=== PATIENT | male | born 1980 | race Caucasian/White ===

== ENCOUNTER 2017-10-10 14:19 | Emergency (ER) | payer OTHER ==
[~2017-10-10] VITALS: Ht 175.3 cm; Wt 108.9 kg
[~2017-10-10 14:19] MED LIST: DOXYCYCLINE 10100 MG PO; IBUPROFEN 800800 M1 PO; IBUPROFEN 800800 MG PO; NAPROSYN500 MG PO; NOHOMEMEDICATIONS; NORCO 5-325 TA1 EACH PO; NORCO 7.5-3251 EACH PO
[2017-10-10] MEDS ORDERED: ZESTRIL10 MG PO (14:38)
[2017-10-10] MEDS ORDERED: VENTOLIN HFA 1818 GM INH (14:38)
[2017-10-10] MEDS ORDERED: NORCO 5-325 TA1 EACH PO (15:24)
[2017-10-10 15:39] VITALS: BP 150/80
== END 2017-10-10 15:38 | disposition home or self-care (01) ==
LOC: ER 14:19
DX: S63.502A Unspecified sprain of left wrist, initial encounter (principal); S20.212A Contusion of left front wall of thorax, initial encounter; J45.909 Unspecified asthma, uncomplicated; F17.210 Nicotine dependence, cigarettes, uncomplicated; Z88.0 Allergy status to penicillin; W11.XXXA Fall on and from ladder, initial encounter; Y93.89 Activity, other specified; Y92.89 Other specified places as the place of occurrence of the external cause; Y99.8 Other external cause status